=== PATIENT | male | born 1960 | race Two or more races ===

== ENCOUNTER 2025-01-13 22:31 | Inpatient (IN) | payer OTHER, MEDICAID ==
[~2025-01-13] VITALS: Ht 175.3 cm; Wt 58.5 kg
--- NOTE | 2025-01-13 22:55 | ED.PDOC ---
SOB-HPI HPI Comments 64 year old male brought in by EMS presents to the ED with a chief complaint of shortness of breath onset 1 week. Per EMS, upon their arrival O2 sat was low 70s on RA, given a breathing treatment and albuterol, O2 improved to 90s, BS 240, HR 123. Patient states he has been experiencing cough with phlegm as well as shortness of breath for the past week, has used albuterol inhaler with no relief. Patient has not seen PCP, denies any PMHx. Denies chest pain, headache, dizziness, nausea, vomiting, diarrhea, abdominal pain, dysuria. No other symptoms or modifying factors present at this time. Chief Complaint: Shortness of Breath Time Seen by MD: 22:42 Reviewed notes: Medications, Allergies Information Source: Patient, Emergency Med Personnel Mode of Arrival: EMS Severity: Moderate Timing: Weeks Duration: Since onset Context: At Rest PE Risk Factors: None History of: None Prehospital treatment: Breathing Tx, Oxygen, Other (albuterol) Modifying Factors: Nothing Associated Signs and Symptoms: Cough Radiation: No Radiation If cough with SOB: Productive Past Medical History PAST MEDICAL HISTORY: Denies Surgical History: Denies all surgeries Family History Family History: Unknown Social History Smoker: Cigarettes Alcohol: Denies ETOH Use Drugs: Denies Drug Use Lives In: Home Constitutional: denies: chills, diaphoresis, fatigue, fever, malaise, sweats, weakness, others EENTM: denies: blurred vision, double vision, ear bleeding, ear discharge, ear drainage, ear pain, ear ringing, eye pain, eye redness, hearing loss, mouth pain, mouth swelling, nasal discharge, nose bleeding, nose congestion, nose pain, photophobia, tearing, throat pain, throat swelling, voice changes, others Respiratory: reports: cough, shortness of breath; denies: hemoptysis, orthopnea, SOB at rest, SOB with excertion, stridor, wheezing, others Cardiovascular: denies: chest pain, dizzy spells, diaphoresis, Dyspnea on exertion, edema, irregular heart beat, left arm pain, lightheadedness, palp itations, PND, syncope, others Gastrointestinal: denies: abdomen distended, abdominal pain, blood streaked bowels, constipated, diarrhea, dysphagia, difficulty swallowing, hematemesis, melena, nausea, poor appetite, poor fluid intake, rectal bleeding, rectal pain, vomiting, others Genitourinary: denies: burning, dysuria, flank pain, frequency, hematuria, incontinence, penile discharge, penile sore, pain, testicle pain, testicle swelling, urgency, others Neurological: denies: dizziness, fainting, headache, left sided numbness, left sided weakness, numbness, paresthesia, pre-existing deficit, right sided numbness, right sided weakness, seizure, speech problems, tingling, tremors, weakness, others Musculoskeletal: denies: back pain, gout, joint pain, joint swelling, muscle pain, muscle stiffness, neck pain, others Integumetry: denies: bruises, change in color, change in hair/nails, dryness, laceration, lesions, lumps, rash, wounds, others Allergic/Immunocompromised: denies: Difficulty Healing, Frequent Infections, Hives, Itching, others Hematologic/Lymphatic: denies: anemia, blood clots, easy bleeding, easy brui sing, swollen glands, others Endocrine: denies: excessive hunger, excessive sweating, excessive thirst, ex cessive urination, flushing, intolerance to cold, intolerance to heat, unexplained weight gain, unexplained weight loss, others Psychiatric: denies: anxiety, bipolar disorder, depression, hopeless, panic disorder, schizophrenia, sleepless, suicidal, others All Other Systems: Reviewed and Negative Physical Exam General Appearance: No Apparent Distress, Normal HEENT: Normal ENT Inspection, Pharynx Normal, TMs Normal Neck: Full Range of Motion, Non-Tender, Normal, Normal Inspection Respiratory: Chest Non-Tender, Lungs Clear, No Accessory Muscle Use, No Respiratory Distress, Normal Breath Sounds Cardiovascular: No Edema, No JVD, No Murmur, No Gallop, Normal Peripheral Pulses, Regular Rate/Rhythm Breast Exam: Deferred Gastrointestinal: No Organomegaly, Non Tender, No Pulsatile Mass, Normal Bowel Sounds, Soft Genitalia: Deferred Pelvic: Deferred Rectal: Deferred Extremities: No calf tenderness, Normal capillary refill, Normal inspection, Normal range of motion, Non-tender, No pedal edema Musculoskeletal : Apperance: Normal Neurologic: Alert, peoplesoft analyst II-XII nml as Tested, No Motor Deficits, Normal Affect, Normal Mood, No Sensory Deficits Cerebellar Function: Normal Reflexes: Normal Skin: Dry, Normal Color, Warm Lymphatic: No Adenopathy Was a procedure done? Was a procedure done?: No Differential Dx Differential Diagnosis: CHF, COPD, Hypertension, Pneumonia X-Ray, Labs, Meds, VS Vital Signs Date Time Temp Pulse Resp B/P (MAP) Pulse Ox O2 Delivery O2 Flow Rate FiO2 01/13/25 22:59 22 93 Nasal Cannula* 6 44 01/13/25 22:40 98.6 123 22 130/73 (92) 96 01/13/25 22:32 118 Lab Test 01/13/25 22:58 Range/Units White Blood Count 16.1 H 4.4-10.8 10^3/uL Red Blood Count 4.20 L 4.5-5.90 10^6/uL Hemoglobin 13.1 L 13.5-17.5 g/dL Hematocrit 38.8 L 41.0-53.0 % Mean Corpuscular Volume 92.4 80.0-100.0 fL Mean Corpuscular Hemoglobin 31.3 28.0-32.0 pg Mean Corpuscular Hemoglobin Concent 33.8 32.0-36.0 g/dL Red Cell Distribution Width 14.4 H 11.8-14.3 % Platelet Count 227 140-450 10^3/uL Mean Platelet Volume 8.2 6.9-10.8 fL Neutrophils (%) (Auto) 92.6 H 37.0-80.0 % Lymphocytes (%) (Auto) 4.3 L 10.0-50.0 % Monocytes (%) (Auto) 2.8 0.0-12.0 % Eosinophils (%) (Auto) 0.0 0.0-7.0 % Basophils (%) (Auto) 0.3 0.0-2.0 % Neutrophils # (Auto) 14.9 H 1.6-8.6 10 ^3/uL Lymphocytes # (Auto) 0.7 0.4-5.4 10 ^3/uL Monocytes # (Auto) 0.4 0-1.3 10 ^3/uL Eosinophils # (Auto) 0 0-0.8 10 ^3/uL Basophils # (Auto) 0 0-0.2 10 ^3/uL Nucleated Red Blood Cells 0.0 % Sodium Level 137 136-145 mmol/L Potassium Level 4.6 3.5-5.1 mmol/L Chloride Level 106 98-107 mmol/L Carbon Dioxide Level 25 20-31 mmol/L Anion Gap 6 5-15 Blood Urea Nitrogen 29 H 9-23 mg/dL Creatinine 1.21 0.700-1.30 mg/dL Glomerular Filtration Rate Calc 66 >90 mL/min BUN/Creatinine Ratio 24.0 H 10.0-20.0 Serum Glucose 226 H 74-106 mg/dL Calcium Level 9.5 8.7-10.4 mg/dL B-Type Natriuretic Peptide 841.01 0-100 pg/mL Current Medications Medications (Trade) Dose Ordered Sig/Oscar Route Start Time Stop Time Status Last Admin Azithromycin (Zithromax Tablet) 500 mg ONCE ONCE PO 01/13/25 22:45 01/13/25 22:46 DC 01/14/25 00:09 Methylprednisolone Sodium Succinate (Solu Medrol) 62.5 mg ONCE ONCE IV 01/13/25 22:45 01/13/25 22:46 DC 01/14/25 00:09 Albuterol (Ventolin Medneb) 5 mg ONCE ONCE NEB 01/13/25 22:45 01/13/25 22:46 DC 01/13/25 22:59 Ipratropium [place] (Atrovent Medneb) 0.5 mg ONCE ONCE NEB 01/13/25 22:45 01/13/25 22:46 DC 01/13/25 22:58 Time of 1ST Reevaluation: 23:12 Reevaluation 1ST: Unchanged Patient Education/Counseling: Diagnosis, Treatment, Prognosis Family Education/Counseling: No Family Present Additional Information The following tests were ordered, and results were reviewed by me: EKG, BMP, CBC, BNP, XY CHEST Additional Information was gathered from interviewing the following independent historians: EMS I reviewed and agreed with the following test results read by other providers: XY CHEST I discussed treatment and results with medical personnel and: patient Departure 1 Departure Time of Disposition: 00:18 (Patient presented with acute shortness of breath concerning for acute on chronic COPD Exacerbation, Pneumonia, ACS, CHF, Pneumothorax. Less likely PE, Dissection. Data: 1. I ordered and reviewed the result of at least 3 labs including a CBC, BMP, and Troponin. 2. I independently interpreted the following tests: Chest X-ray shows .Risk:This patient has a high risk of morbidity due to further diagnostic testing or treatment and may suffer from respiratory or cardiac etiology . Workup reveals a likely COPD Exacerbation and patient should be admitted for further workup. and possible expert consultation.) Impression: Primary Impression: Acute and chronic respiratory failure Additional Impression: Shortness of breath Disposition: ADMITTED INPATIENT Admit to: Med Surg Condition: Serious Critical Care Note Critical Care Time?: Yes Critical care comment: Shortness of breath Authorized and Performed by: Noemi Winchester MD Total critical care time: Approximately 38 minutes Due to a high probability of clinically significant, life threatening deterioration, the patient required my highest level of preparedness to intervene emergently and I personally spent this critical care time directly and personally managing the patient. This critical care time included obtaining a history; examining the patient; pulse oximetry; ordering and review of studies; arranging urgent treatment with development of a management plan; evaluation of patient's response to treatment; frequent reassessment; and, discussions with other providers. This critical care time was performed to assess and manage the high probability of imminent, life-threatening deterioration that could result in multi-organ failure. It was exclusive of separately billable procedures and treating other patients and teaching time. Please see my other sections and the rest of the note for further information on patient assessment and treatment. Stability Stability form required: No Heart Score Heart Score: Heart Score Response (Comments) Value History Slightly Suspicious 0 EKG Repolarization Disturb 1 Age >65 2 Risk Factors >3 or Hx ASHD 2 Troponin Normal limit 0 Total 5 I personally scribed for NOEMI WINCHESTER MD ([email or web address]) on 01/13/25 at 22:55. Electronically submitted by Blanka Post ([email or web address]). I personally scribed for NOEMI WINCHESTER MD ([email or web address]) on 01/13/25 at 22:56. Electronically submitted by Blanka Post ([email or web address]). NOEMI WINCHESTER MD Jan 13, 2025 22:55
[2025-01-13] MEDS: IPRATROPIUM BROM 0.5 MG/2.5ML INH SOL NEB ONE (22:58)
[2025-01-13] MEDS: ALBUTEROL SULF 2.5 MG/0.5ML(0.5%) NEB SOLN NEB ONE (22:59)
[2025-01-13 23:20] LABS: Chloride 106 mmol/L (98-107); Potassium 4.6 mmol/L (3.5-5.1); Sodium 137 mmol/L (136-145)
[2025-01-13 23:21] LABS: Anion Gap 6 (5-15); Basophils # (auto) 0 10 ^3/uL (0-0.2); Basophils % (auto) 0.3 % (0.0-2.0); Calcium 9.5 mg/dL (8.7-10.4); Carbon Dioxide 25 mmol/L (20-31); Eosinophils # (auto) 0 10 ^3/uL (0-0.8); Hematocrit 38.8 % (41.0-53.0); Hemoglobin 13.1 g/dL (13.5-17.5); Lymphocytes # (auto) 0.7 10 ^3/uL (0.4-5.4); Lymphocytes % (auto) 4.3 % (10.0-50.0); Mean Corpuscular Hemoglobin 31.3 pg (28.0-32.0); Mean Corpuscular Hgb Conc. 33.8 g/dL (32.0-36.0); Mean Corpuscular Volume 92.4 fL (80.0-100.0); Monocytes # (auto) 0.4 10 ^3/uL (0-1.3); Monocytes % (auto) 2.8 % (0.0-12.0); Neutrophils # (auto) 14.9 10 ^3/uL (1.6-8.6); Neutrophils % (auto) 92.6 % (37.0-80.0); Platelet Count (auto) 227 10^3/uL (140-450); Red Cell Distribution Width 14.4 % (11.8-14.3); White Blood Cell 16.1 10^3/uL (4.4-10.8)
[2025-01-13 23:26] LABS: Blood Urea Nitrogen 29 mg/dL (9-23); Glucose 226 mg/dL (74-106)
[2025-01-14] VITALS (18 sets, daily range): BP systolic 90–130; BP diastolic 55–73; PULSE 67–91; RESP 13–22; TEMP 97.5–98.4; O2SAT 83–99
[2025-01-14] MEDS: AZITHROMYCIN 250 MG TAB PO ONE (00:09)
[2025-01-14] MEDS: methylPREDNISolone SOD SUCC 125 MG/2 ML VL IV ONE (00:09)
--- NOTE | 2025-01-14 00:10 | DVH ---
CHEST RADIOGRAPH Indication: sob Technique: Single frontal view of the chest was obtained Comparison: None Findings/ IMPRESSION: Right mid to lower lung zone opacification concerning for pneumonia. Prominent interstitial markings diffusely. No pneumothorax or pleural effusions
[2025-01-14] MEDS ORDERED: ONDANSETRON HCL 4 MG/2 ML VIAL IV PRN (01:15)
[2025-01-14] MEDS ORDERED: DEXTROSE (50%) 50ML SYRG IV PRN (01:15)
[2025-01-14] MEDS ORDERED: MORPHINE SULFATE INJ 2 MG/ml SYRG IV PRN ×2 (01:15→15:45)
[2025-01-14] MEDS ORDERED: NITROGLYCERIN 0.4 MG SL TAB SL PRN ×2 (01:15→15:45)
[2025-01-14] MEDS: FUROSEMIDE 20 MG/2 ML VIAL IV ONE (02:21)
[2025-01-14] MEDS: IPRATROPIUM BROM 0.5 MG/2.5ML INH SOL NEB PRN (02:33)
[2025-01-14] MEDS: ALBUTEROL SULF 2.5 MG/0.5ML(0.5%) NEB SOLN NEB PRN (02:34)
--- NOTE | 2025-01-14 03:50 | DVHHP2 ---
History of Present Illness Reason for Visit: Shortness for breath History of Present Illness 64-year-old male presents for evaluation of shortness for breath. Patient presents with a one-week history of worsening shortness for breath with mild exertion. Patient reports becoming severely winded with doing minimal tasks at home. Denies chest pain or palpitations. States having a nonproductive cough. No fever or chills. No other acute complaints reported. Past Medical History COPD, dyslipidemia and diabetes mellitus Past Surgical History Denies Family History Noncontributory Smoke: No ALCOHOL: none Drugs: None Lives: with Family Review of Systems Review of Systems Review of systems are currently negative otherwise addressed in HPI. Allergies: Coded Allergies: NO KNOWN ALLERGIES (Unverified , 01/13/25) Medications Current Medications Medications Dose Ordered Sig/Oscar Route Start Time Stop Time Status Last Admin Dose Admin Atorvastatin Calcium 40 mg HS PO 01/14/25 22:00 Albuterol 2.5 mg Q6HPRN PRN NEB 01/14/25 01:15 01/14/25 02:34 2.5 MG Ipratropium [place] 0.5 mg Q6HPRN PRN NEB 01/14/25 01:15 01/14/25 02:33 0.5 MG Ceftriaxone Sodium 50 ml @ 100 mls/hr DAILY@09 IV 01/14/25 09:00 Azithromycin 250 ml @ 125 mls/hr DAILY@0000 IV 01/15/25 00:00 Diagnostic Test (Pha) 1 strip ACHS 01/14/25 07:00 Insulin Human Regular ACHS SC 01/14/25 07:00 Dextrose 50 ml UD PRN IV 01/14/25 01:15 Ondansetron HCl 4 mg Q4HP PRN IV 01/14/25 01:15 Enoxaparin Sodium 40 mg DAILY SC 01/14/25 10:00 Acetaminophen 650 mg Q6HP PRN PO 01/14/25 01:15 Nitroglycerin 0.4 mg Q5MINP PRN SL 01/14/25 01:15 Morphine Sulfate 2 mg Q30M PRN IV 01/14/25 01:15 Furosemide 40 mg DAILY PO 01/14/25 10:00 Exam Vital Signs Vital Signs Date Time Temp Pulse Resp B/P (MAP) Pulse Ox O2 Delivery O2 Flow Rate FiO2 01/14/25 02:34 98 Nasal Cannula 3.0 01/14/25 02:34 77 14 01/14/25 02:34 N/A 01/14/25 02:21 100/61 01/14/25 00:05 98.1 98.1 Exam Gen: 64-year-old male in mild distress Skin: Warm, dry, normal color and texture, no rash. HEENT: Normocephalic atraumatic, mucous membranes moist and pink. Neck: Cervical and supraclavicular nodes normal without enlargement, trachea is midline, thyroid gland is normal without masses. Pulmonary: Diminished breath sounds bilaterally Cardiac: Regular rate and rhythm. No murmur Abdomen: Soft, nontender, nondistended, bowel sounds present all 4 quadrants, no guarding, no rigidity, no organomegaly. Extremities: No cyanosis, clubbing, no edema Neuro: Cranial nerves II through XII grossly intact, normal affect and speech, no focal motor deficits. Labs/Xrays ORDERING PHYSICIAN: NOEMI FORBES MD PROCEDURE(s): CXRP - CHEST PORTABLE REASON: sob ORDER NUMBER(s): [id number], ACCESSION NUMBER(s): [id number] CHEST RADIOGRAPH Indication: sob Technique: Single frontal view of the chest was obtained Comparison: None Findings/ IMPRESSION: Right mid to lower lung zone opacification concerning for pneumonia. Prominent interstitial markings diffusely. No pneumothorax or pleural effusions Labs Test 01/14/25 01:33 01/13/25 22:58 Range/Units Troponin I High Sensitivity 570 *H </=54 ng/L White Blood Count 16.1 H 4.4-10.8 10^3/uL Red Blood Count 4.20 L 4.5-5.90 10^6/uL Hemoglobin 13.1 L 13.5-17.5 g/dL Hematocrit 38.8 L 41.0-53.0 % Mean Corpuscular Volume 92.4 80.0-100.0 fL Mean Corpuscular Hemoglobin 31.3 28.0-32.0 pg Mean Corpuscular Hemoglobin Concent 33.8 32.0-36.0 g/dL Red Cell Distribution Width 14.4 H 11.8-14.3 % Platelet Count 227 140-450 10^3/uL Mean Platelet Volume 8.2 6.9-10.8 fL Neutrophils (%) (Auto) 92.6 H 37.0-80.0 % Lymphocytes (%) (Auto) 4.3 L 10.0-50.0 % Monocytes (%) (Auto) 2.8 0.0-12.0 % Eosinophils (%) (Auto) 0.0 0.0-7.0 % Basophils (%) (Auto) 0.3 0.0-2.0 % Neutrophils # (Auto) 14.9 H 1.6-8.6 10 ^3/uL Lymphocytes # (Auto) 0.7 0.4-5.4 10 ^3/uL Monocytes # (Auto) 0.4 0-1.3 10 ^3/uL Eosinophils # (Auto) 0 0-0.8 10 ^3/uL Basophils # (Auto) 0 0-0.2 10 ^3/uL Nucleated Red Blood Cells 0.0 % D-Dimer, Quantitative 0.54 H 0.0-0.49 mg/L FEU Sodium Level 137 136-145 mmol/L Potassium Level 4.6 3.5-5.1 mmol/L Chloride Level 106 98-107 mmol/L Carbon Dioxide Level 25 20-31 mmol/L Anion Gap 6 5-15 Blood Urea Nitrogen 29 H 9-23 mg/dL Creatinine 1.21 0.700-1.30 mg/dL Glomerular Filtration Rate Calc 66 >90 mL/min BUN/Creatinine Ratio 24.0 H 10.0-20.0 Serum Glucose 226 H 74-106 mg/dL Lactic Acid Level 2.0 0.4-2.0 mmol/L Calcium Level 9.5 8.7-10.4 mg/dL B-Type Natriuretic Peptide 841.01 0-100 pg/mL Assessment/Plan Assessment/Plan Assessment Community-acquired pneumonia Congestive heart failure Diabetes mellitus COPD Plan Admit the patient to telemetry to the hospitalist Rocephin/azithromycin Resume home medications Med nebs Echocardiogram pending Continue treatment per orders. Plan discussed with: Patient My Orders Orders - MIKEL ROSE Procedure Category Date Status Time Echo 2d Mode Cardiac US 01/14/25 Logged DOP 01:15 Atorvastatin (Lipitor) PHA 01/14/25 In Process 22:00 Consistent DIET 01/14/25 Transmitted Carb(Ccho)Diabetes Breakfast Albuterol Medneb PHA 01/14/25 In Process (Ventolin Medneb) 01:15 Basic Metabolic Panel LAB 01/15/25 Verified 04:00 Glucose Blood PHA 01/14/25 In Process (Accu-Chek Comfort 07:00 Insulin R (Human) PHA 01/14/25 In Process (Insulin R) 07:00 Dextrose 50% Syringe PHA 01/14/25 In Process 01:15 Admit ADMIT 01/14/25 Transmitted 01:15 Ondansetron Hcl PHA 01/14/25 In Process (Zofran) 01:15 Enoxaparin Sodium PHA 01/14/25 In Process (Lovenox) 10:00 Complete Blood Count LAB 01/15/25 Verified 04:00 Cardiac DIET 01/14/25 Transmitted Diet-2gna,Lofat,Lochol Breakfast Condition: Fair BRIANA 01/14/25 In Process 01:15 Acetaminophen Tablet PHA 01/14/25 In Process (Tylenol Tablet) 01:[address] [facility] 01/14/25 In Process Privileg 01:15 Nitroglycerin [facility] 01/14/25 In Process Sublingual (Ntrostat 01:15 Morphine Sulfate PHA 01/14/25 In Process Injection 01:[address] Chest [facility] 01/14/25 In Process Pain 01:15 Notify Md Of Changes [facility] 01/14/25 In Process From Base 01:[address] [facility] 01/14/25 In Process 24 Hours 01:[address] [facility] 01/14/25 In Process Protocol 01:[address] [facility] 01/14/25 In Process Every Shift 01:15 Oxygen By Nasal RT 01/14/25 Transmitted Cannula 01:15 Ipratropium Medneb PHA 01/14/25 In Process (Atrovent Medneb) 01:15 Ceftriaxone 1gm/50ml PHA 01/14/25 In Process D5w (Rocephin) 09:00 Azithromycin 500mg/ PHA 01/15/25 In Process 250ml (Zithromax 50 00:00 Furosemide Tablet PHA 01/14/25 In Process (Lasix Tablet) 10:00 Troponin-I Hs LAB 01/14/25 Logged 04:00 Troponin-I Hs LAB 01/14/25 Logged 07:00 Date of Service: Jan 14, 2025 Billing Provider: MIKEL ROSE Common Visit Codes: [id number] INP/OBS CARE (HIGH) MIKEL ROSE Jan 14, 2025 03:50
[2025-01-14 05:07] LABS: Urine Bacteria None Seen /hpf (None Seen)
[2025-01-14 05:25] LABS: Urine Blood Negative /uL (Negative); Urine Clarity Clear (Clear); Urine Color Light-Yellow (Yellow); Urine Protein, UAD Negative (Negative); Urine Specific Gravity 1.016 (1.001-1.035); Urine Squamous Epithelial Cell None Seen /hpf (<5); Urine Urobilinogen Normal (Negative); Urine WBC < 1 /HPF (0-3)
--- NOTE | 2025-01-14 06:30 | ECG ---
[facility] Test Date: 2025-01-13 Test Time: 22:32:48 Pat Name: JUANI GONZALES Department: er Room: 0250T Gender: M Die Developer: er : 1960 Requested By: NOEMI FORBES Order Number: [id number] Reading MD: Jos Kathleen Measurements Intervals [place] Rate: 118 P: 95 CT: 146 QRS: 84 QRSD: 79 T: 252 QT: 281 QTc: 394 Interpretive Statements Sinus tachycardia Right atrial enlargement Borderline right axis deviation LVH with secondary repolarization abnormality ST depr, consider ischemia, inferior leads Electronically Signed On 01-14-2025 22:26:09 PST by Jos Kathleen Please click the below link to view image of tracing.
[2025-01-14] MEDS: ACCU-CHEK COMFORT CURVE STRIP VI SCH (07:00)
[2025-01-14] MEDS: InsuLIN REG 1unit/0.01ml Soln (100units/ml) SC SCH (07:00)
[2025-01-14 07:41] LABS: INR 1.08 (0.9-1.15); Partial Thromboplastin Time 23.9 SEC (24.5-34.5); Prothrombin Time 11.4 sec (9.3-11.8)
[2025-01-14 07:47] LABS: Basophils # (auto) 0 10 ^3/uL (0-0.2); Basophils % (auto) 0.1 % (0.0-2.0); Eosinophils # (auto) 0 10 ^3/uL (0-0.8); Hematocrit 38.9 % (41.0-53.0); Hemoglobin 12.7 g/dL (13.5-17.5); Lymphocytes # (auto) 0.5 10 ^3/uL (0.4-5.4); Mean Corpuscular Hemoglobin 30.5 pg (28.0-32.0); Mean Corpuscular Hgb Conc. 32.7 g/dL (32.0-36.0); Mean Corpuscular Volume 93.2 fL (80.0-100.0); Monocytes # (auto) 0.3 10 ^3/uL (0-1.3); Neutrophils # (auto) 15.3 10 ^3/uL (1.6-8.6); Neutrophils % (auto) 94.9 % (37.0-80.0); Platelet Count (auto) 196 10^3/uL (140-450); Red Blood Cells 4.17 10^6/uL (4.5-5.90); Red Cell Distribution Width 14.5 % (11.8-14.3); White Blood Cell 16.2 10^3/uL (4.4-10.8)
[2025-01-14] MEDS: HEPARIN SODIUM (PORCINE) 5000 UNITS/ML 1ML VIAL IV ONE (08:27)
[2025-01-14 08:39] LABS: Magnesium 1.8 mg/dL (1.6-2.6)
[2025-01-14] MEDS: cefTRIAXone 1GM/50ML D5W 50 ML IV SCH (08:41)
[2025-01-14] MEDS: HEPARIN DRIP/D5W 100UNITS/ML 250 ML IV SCH (09:09)
--- NOTE | 2025-01-14 09:17 | DVHINCON2 ---
Date Seen: Jan 14, 2025 Referring Physician KEN Mock Reason for Consultation NSTEMI History of Present Illness This is a 64-year-old male patient who presents to the emergency room with chief complaint of shortness of breath for three weeks. The patient reports that his dyspnea has become progressively worse and yesterday he became concerned after experiencing severe dyspnea on exertion as well as orthopnea. He comes to the emergency room for further evaluation. Cardiology has now been consulted at this time for elevated troponin level. Initial twelve lead electrocardiogram reveals sinus tachycardia with ST segment depression to inferolateral leads and left ventricular hypertrophy. Initial troponin level of 327ng/L with significant up-trend and current peak level at 1491ng/L (pending another level). The patient denies any chest pain at time of assessment or prior to admission. Significant past medical history includes dyslipidemia, COPD, type 2 diabetes mellitus, chronic back pain, and tobacco use. The patient denies seeing a rn chemical dependency in the outpatient setting. Past Medical History Past medical history reviewed. No other significant than mentioned above. Past Surgical History Spinal decompression surgery Left knee arthroscopy Family History Family history reviewed. Social History Patient has a 40 pack-year history Denies any illicit drug use Denies any alcohol use Allergies: Coded Allergies: NO KNOWN ALLERGIES (Unverified , 01/13/25) Home Meds Home medications reviewed. Current Medications Current Medications Medications (Trade) Dose Ordered Sig/Oscar Route PRN Reason Start Time Stop Time Status Last Admin Atorvastatin Calcium (Lipitor) 40 mg HS PO 01/14/25 22:00 Albuterol (Ventolin Medneb) 2.5 mg Q6HPRN PRN NEB SHORTNESS OF BREATH 01/14/25 01:15 01/14/25 02:34 Ipratropium [place] (Atrovent Medneb) 0.5 mg Q6HPRN PRN NEB SHORTNESS OF BREATH 01/14/25 01:15 01/14/25 02:33 Ceftriaxone Sodium 50 ml @ 100 mls/hr DAILY@09 IV 01/14/25 09:00 01/14/25 08:41 Azithromycin 250 ml @ 125 mls/hr DAILY@0000 IV 01/15/25 00:00 Diagnostic Test (Pha) (Accu-Chek Comfort Curve T) 1 strip ACHS 01/14/25 07:00 01/14/25 07:00 Insulin Human Regular (InsuLIN R) ACHS SC 01/14/25 07:00 Dextrose 50 ml UD PRN IV Blood Sugar LESS THAN 60 01/14/25 01:15 Ondansetron HCl (Zofran) 4 mg Q4HP PRN IV NAUSEA / VOMITING 01/14/25 01:15 Enoxaparin Sodium (Lovenox) 40 mg DAILY SC 01/14/25 10:00 01/14/25 08:02 DC Acetaminophen (Tylenol Tablet) 650 mg Q6HP PRN PO PAIN SCALE 1-3 OR TEMP>100.4 01/14/25 01:15 Nitroglycerin (Ntrostat Sublingual) 0.4 mg Q5MINP PRN SL FOR CHEST PAIN 01/14/25 01:15 Morphine Sulfate 2 mg Q30M PRN IV FOR CHEST PAIN 01/14/25 01:15 Furosemide (Lasix Tablet) 40 mg DAILY PO 01/14/25 10:00 Heparin Sodium/ Dextrose 250 ml @ 7.632 mls/ hr Q24H IV 01/14/25 05:00 UNV Review of Systems Constitutional: No symptom reported Ears, Nose, & Throat: No symptom reported Eyes: No symptom reported Neurological: No symptoms reported Pulmonary/Respiratory: Shortness of breath Cardiovascular: No symptom reported Gastrointestinal: No symptom reported Genitourinary: No symptom reported Musculoskeletal: No symptom reported Skin: No symptom reported Psychiatric: No symptom reported Endocrine: No symptom reported Hematologic/Lymphatic: No symptom reported Vital Signs Vital Signs Date Time Temp Pulse Resp B/P (MAP) Pulse Ox O2 Delivery O2 Flow Rate FiO2 01/14/25 08:10 64 01/14/25 06:05 20 91/57 (68) 94 01/14/25 02:34 Nasal Cannula 3.0 01/14/25 02:34 N/A 01/14/25 00:05 98.1 98.1 Physical Exam General Appearance: Cooperative. Well-developed. Well-nourished. No acute distress. Pulmonary/Respiratory: Diminished bilateral lower lobes Cardiovascular/Chest: Regular rate and rhythm. Systolic murmur Peripheral Pulses: 2+ Radial (R). 2+ Radial (L). 2+ Pedal (R). 2+ Pedal (L) Abdominal Exam: Normal bowel sounds. Ankle Exam: Negative ankle edema Lower extremities: Negative lower extremity edema Neuro/Mental Status: A/OX4, coherent. Thoughts/Psych: Normal thought pattern. Appropriate mood and affect. Good judgment and insight. Appearance: No acute distress. Skin Exam: Normal inspection. Normal color. Warm and dry. Labs/Diagnostic Data Labs Test 01/14/25 07:02 01/14/25 03:19 01/13/25 22:58 Range/Units White Blood Count 16.2 H 4.4-10.8 10^3/uL Red Blood Count 4.17 L 4.5-5.90 10^6/uL Hemoglobin 12.7 L 13.5-17.5 g/dL Hematocrit 38.9 L 41.0-53.0 % Mean Corpuscular Volume 93.2 80.0-100.0 fL Mean Corpuscular Hemoglobin 30.5 28.0-32.0 pg Mean Corpuscular Hemoglobin Concent 32.7 32.0-36.0 g/dL Red Cell Distribution Width 14.5 H 11.8-14.3 % Platelet Count 196 140-450 10^3/uL Mean Platelet Volume 8.6 6.9-10.8 fL Neutrophils (%) (Auto) 94.9 H 37.0-80.0 % Lymphocytes (%) (Auto) 3.0 L 10.0-50.0 % Monocytes (%) (Auto) 2.0 0.0-12.0 % Eosinophils (%) (Auto) 0.0 0.0-7.0 % Basophils (%) (Auto) 0.1 0.0-2.0 % Neutrophils # (Auto) 15.3 H 1.6-8.6 10 ^3/uL Lymphocytes # (Auto) 0.5 0.4-5.4 10 ^3/uL Monocytes # (Auto) 0.3 0-1.3 10 ^3/uL Eosinophils # (Auto) 0 0-0.8 10 ^3/uL Basophils # (Auto) 0 0-0.2 10 ^3/uL Nucleated Red Blood Cells 0.0 % Prothrombin Time 11.4 9.3-11.8 sec Prothrombin Time INR 1.08 0.9-1.15 Activated Partial Thromboplast Time 23.9 L 24.5-34.5 SEC Magnesium Level 1.8 1.6-2.6 mg/dL Troponin I High Sensitivity 1491 *H </=54 ng/L Triglycerides Level 58 < 150 mg/dL Cholesterol Level 207 H < 200 mg/dL LDL Cholesterol 131 H < 100 mg/dL HDL Cholesterol 66 H 40-59 mg/dL Urine Color Light-yellow Yellow Urine Clarity Clear Clear Urine pH 5.0 5.0-9.0 Urine Specific [place] 1.016 1.001-1.035 Urine Protein Negative Negative Urine Ketones Negative Negative Urine Blood Negative Negative /uL Urine Nitrite Negative Negative Urine Bilirubin Negative Negative Urine Urobilinogen Normal Negative mg/dL Urine Leukocyte Esterase Negative Negative /uL Urine RBC 1 0 - 3 /hpf Urine Microscopic WBC < 1 0-3 /HPF Urine Squamous Epithelial Cells None seen <5 /hpf Urine Bacteria None seen None Seen /hpf Urine Glucose Normal Normal mg/dL D-Dimer, Quantitative 0.54 H 0.0-0.49 mg/L FEU Sodium Level 137 136-145 mmol/L Potassium Level 4.6 3.5-5.1 mmol/L Chloride Level 106 98-107 mmol/L Carbon Dioxide Level 25 20-31 mmol/L Anion Gap 6 5-15 Blood Urea Nitrogen 29 H 9-23 mg/dL Creatinine 1.21 0.700-1.30 mg/dL Glomerular Filtration Rate Calc 66 >90 mL/min BUN/Creatinine Ratio 24.0 H 10.0-20.0 Serum Glucose 226 H 74-106 mg/dL Lactic Acid Level 2.0 0.4-2.0 mmol/L Calcium Level 9.5 8.7-10.4 mg/dL B-Type Natriuretic Peptide 841.01 0-100 pg/mL Assessment NSTEMI, rule out type 1 Critical aortic stenosis Dyslipidemia Pneumonia COPD Type 2 diabetes mellitus Tobacco use Plan/Recommendation We will continue with the following plan/recommendations (Dr. Luis): * Echocardiogram reveals EF 50% with critical aortic stenosis (ZAKIA 0.79 cm2, mean gradient 71mmHg, peak gradient 103mmHg) * Heparin gtt per pharmacy protocol * Lipid-lowering agent * Cardiac surveillance * Coronary angiogram * patient financial services manager: tx to [facility] for possible TAVR Patient seen and examined in the emergency room with . Given the patient's clinical presentation, elevated troponin level, and comorbidities, the patient may benefit from coronary angiogram with left heart catheterization. The procedure was discussed with the patient in full detail including risks and benefits. Risks include but are not limited to bleeding, contrast-induced nephropathy, stroke, and even . The patient understands and is agreeable to undergo the procedure. We will schedule the patient at soonest availability on 01/14/25. Thank you for allowing us to care for this patient. Please call with any questions or concerns. Critical care time spent: 40 minutes This medical document was created using an electronic medical record system with voice recognition software and computerized dictation system. Although this document has been carefully reviewed, there might still be some phonetic and typographical errors. Occasional wrong-word or ``sound-alike substitutions may have occurred due to the inherent limitations of voice recognition software. These areas are purely typographical due to imperfections of the software programs and do not reflect any compromise in the patient's medical care. Please read the chart carefully and recognize, using context, where these substitutions have occurred. Plan discussed with: Patient NYHA Physical activity limitations: NA Date of Service: Jan 14, 2025 Billing Provider: DAE BLANCAS Cardiology Common Codes: [id number] INP/OBS CARE (High) Cardiology Consultation Codes: [id number] CONSULT <45MIN DAE BLANCAS Jan 14, 2025 09:17
[2025-01-14] MEDS ORDERED: ENOXAPARIN SOD 40 MG/0.4 ML SYRINGE SC SCH (10:00)
[2025-01-14] MEDS: FUROSEMIDE 40 MG TAB PO SCH (10:00)
[2025-01-14 11:28] LABS: Free T3 2.47 pg/mL (2.3-4.2)
[2025-01-14 11:30] LABS: Free T4 (Free Thyroxine) 1.38 ng/dL (0.89-1.76)
[2025-01-14 11:32] LABS: Rapid Influenza A Negative (Negative); Rapid Influenza B Negative (Negative)
[2025-01-14 11:32] LABS: COVID19 ANTIGEN SOFIA FIA NEGATIVE (NEGATIVE)
--- NOTE | 2025-01-14 11:51 | DVHSR ---
APPROVED REPORT EXAM: Two-dimensional and M-mode echocardiogram with Doppler and color Doppler. Blood Pressure: 91/57 mmHg INDICATION EF RISK FACTORS Height: 69, Weight: 140 DIMENSIONS LVDd (3.8-5.7cm)LA (2D)4.0 (1.9-4.0cm)Aortic Root (2.0-3.7cm) EF (%) 48.0 (55-70%)Rt. Atrium3.9 (1.9-4.0cm)Asc. Aorta cm Mitral Valve MitralMitral Stenosis E wave1.03m/sMV Mean GR.mmHg A wave1.23m/sMV Peak GR.102mmHg E/A ratio0.82D MVAcm2 DECEL [id number] 1/2 Timems Aortic Valve Aortic ValveAortic Stenosis V11.41m/Emiliano Mean GR.71mmHg V25.07m/Emiliano Peak GR.103mmHg LVOT Diameter1.9 (1.8-2.4cm)Doppler AVA0.79cm2 AI P 1/2 Qiad571.20ms Other Information Technically limited study due to body habitus and patient breathing. Conclusion lvef 50% by visual estimate RV function normal critical aortic stenosis, AV mean gradient > 67 mmhg, AV V max of 5.1 m/s moderate to severe aotric regurg
[2025-01-14] MEDS: ANGIOMAX 250 MG VIAL IV ONE (14:19)
[2025-01-14] MEDS: VERAPAMIL 2.5MG/ML INJ 2ML VIAL IV ONE (14:19)
[2025-01-14] MEDS: HEPARIN SODIUM (PORCINE) 5000 UNITS/ML 1ML VIAL ONE (14:19)
[2025-01-14] MEDS: fentaNYL CITRATE 100 MCG/2 ML VL ONE (14:19)
[2025-01-14] MEDS: IODIXANOL 320MG/ML 100ML BTL IV ONE (14:20)
[2025-01-14] MEDS: LIDOCAINE 2%HCL (LOCAL ANESTH.) INJ 20ML MDV ONE ×2 (14:20→14:21)
[2025-01-14] MEDS: MIDAZOLAM HCL 2MG/2ML 2ml VIAL (1mg/ml) ONE (14:20)
[2025-01-14] MEDS: SODIUM CHL 0.9% 0 ML ONE (14:20)
[2025-01-14] MEDS: NOREPINEPHRINE 8 MG/250ML KIT 0 ML IV ONE (15:16)
--- NOTE | 2025-01-14 16:01 | DVHOP2 ---
Operative Report Operative Report CARDIAC DIRECTOR PROCEDURE REPORT [place], [place] Date of Service: 01/14/25 Bartender Server: Ijeoma Schneider MD PROCEDURES PERFORMED: Coronary angiogram, conscious sedation administration and supervision, less than 15 minutes; fluoroscopy use and interpretation. PREOPERATIVE DIAGNOSES: severe POSTOP DIAGNOSIS: severe DESCRIPTION OF PROCEDURE: The patient or appropriate family signed informed consent understanding the risks, benefits and alternatives of the procedure, they wished to proceed. The patient was brought to the cardiac laboratory geneticist in n.p.o. state. The patient was prepped in a sterile fashion. Sedation was used per cardiac cath protocol. I administered 2 mL of 2% lidocaine to the right wrist. With an antegrade front wall puncture. I cannulated the right radial artery and placed a 5 Polish Glidesheath slender. Next, Next, a - 5 Polish [place] catheter carroll JR 4 were used for coronary angiogram . At the completion of procedure, all guides and wires were removed, and there were no immediate complications. 2000 U of IV heparin given .pt was on heparin gtt . no spasmolytic was given for critical FINDINGS: RCA: Moderate vessel off the right sinus of Valsalva, there is a focal 60-70% stenosis in mid portion. it is dominant vessel with PDA off distally LEFT MAIN: Moderate size left main, it bifurcates into LAD and circumflex. very downward takeoff. no severe stenosis. CIRCUMFLEX: Moderate caliber vessel coming off the left main with no flow limiting stenosis. OM1 is very early takeoff with 40% mid vessel stenosis . distal CX has mild Plaque LAD: LAD is a moderate caliber vessel coming of the left main. no severe stenosis. 30% mid LAD stenosis with several small diag branches coming off. Incidentally, J wire crossed AV twice with ease . pressures not obtained how ever given confirmed critical . IJEOMA SCHNEIDER MD Jan 14, 2025 16:01
[2025-01-14] MEDS ORDERED: FOLI-119 (17:51)
[2025-01-14] MEDS ORDERED: DIPH25CA51 (17:51)
[2025-01-14] MEDS ORDERED: METH2.5T62 (17:51)
[2025-01-14] MEDS ORDERED: ALBU108A5 (17:51)
[2025-01-14] MEDS ORDERED: ADAL40IN2 (17:51)
[2025-01-14] MEDS: ATORVASTATIN 20 MG TAB PO SCH (22:49)
[2025-01-15] VITALS (10 sets, daily range): BP systolic 87–123; BP diastolic 60–80; PULSE 86–97; RESP 16–17; TEMP 97.4–98.4; O2SAT 92–98
[2025-01-15] MEDS: AZITHROMYCIN 500MG/ 250ML 250 ML IV SCH
[2025-01-15 07:06] LABS: Basophils # (auto) 0.1 10 ^3/uL (0-0.2); Basophils % (auto) 0.3 % (0.0-2.0); Eosinophils # (auto) 0.1 10 ^3/uL (0-0.8); Eosinophils % (auto) 0.3 % (0.0-7.0); Hematocrit 37.2 % (41.0-53.0); Hemoglobin 12.3 g/dL (13.5-17.5); Lymphocytes # (auto) 2.1 10 ^3/uL (0.4-5.4); Lymphocytes % (auto) 11.8 % (10.0-50.0); Mean Corpuscular Hemoglobin 30.8 pg (28.0-32.0); Mean Corpuscular Hgb Conc. 33.2 g/dL (32.0-36.0); Mean Corpuscular Volume 92.6 fL (80.0-100.0); Monocytes # (auto) 1.4 10 ^3/uL (0-1.3); Monocytes % (auto) 7.8 % (0.0-12.0); Neutrophils # (auto) 14.2 10 ^3/uL (1.6-8.6); Neutrophils % (auto) 79.8 % (37.0-80.0); Platelet Count (auto) 188 10^3/uL (140-450); Red Blood Cells 4.01 10^6/uL (4.5-5.90); Red Cell Distribution Width 14.7 % (11.8-14.3); White Blood Cell 17.8 10^3/uL (4.4-10.8)
[2025-01-15 07:18] LABS: Potassium 4.5 mmol/L (3.5-5.1); Sodium 140 mmol/L (136-145)
[2025-01-15 07:19] LABS: Anion Gap 4 (5-15); Calcium 9.4 mg/dL (8.7-10.4); Carbon Dioxide 28 mmol/L (20-31); Chloride 108 mmol/L (98-107)
[2025-01-15 07:24] LABS: Glucose 97 mg/dL (74-106)
[2025-01-15 07:28] LABS: Blood Urea Nitrogen 31 mg/dL (9-23)
--- NOTE | 2025-01-15 13:37 | DVHPN2 ---
Reviewed: Care Plan, H&P, Labs, Medications, Previous Orders, Radiology Changes from previous H/P or p: No Changes General: Per HPI Objective Vitals Vital Signs Date Time Temp Pulse Resp B/P (MAP) Pulse Ox O2 Delivery O2 Flow Rate FiO2 01/15/25 12:35 97.4 92 17 116/80 (92) 98 97.4 01/15/25 10:00 Room Air 0.0 01/15/25 10:00 21 Intake/Output Intake and Output 01/15/25 07:00 Intake Total 535 ml Output Total 400 ml Balance 135 ml Intake Oral 200 ml IV Total 335 ml Output Urine Total 400 ml Medications Current Medications Medications Dose Ordered Sig/Oscar Route Start Time Stop Time Status Last Admin Dose Admin Atorvastatin Calcium 40 mg HS PO 01/14/25 22:00 01/14/25 22:49 40 MG Albuterol 2.5 mg Q6HPRN PRN NEB 01/14/25 01:15 01/14/25 23:02 2.5 MG Ipratropium [place] 0.5 mg Q6HPRN PRN NEB 01/14/25 01:15 01/14/25 23:02 0.5 MG Ceftriaxone Sodium 50 ml @ 100 mls/hr DAILY@09 IV 01/14/25 09:00 01/15/25 09:17 100 MLS/HR Azithromycin 250 ml @ 125 mls/hr DAILY@0000 IV 01/15/25 00:00 01/15/25 00:00 125 MLS/HR Diagnostic Test (Pha) 1 strip ACHS 01/14/25 07:00 01/15/25 11:30 1 STRIP Insulin Human Regular ACHS SC 01/14/25 07:00 Dextrose 50 ml UD PRN IV 01/14/25 01:15 Ondansetron HCl 4 mg Q4HP PRN IV 01/14/25 01:15 Acetaminophen 650 mg Q6HP PRN PO 01/14/25 01:15 Furosemide 40 mg DAILY PO 01/14/25 10:00 01/15/25 09:17 40 MG Nitroglycerin 0.4 mg Q5MINP PRN SL 01/14/25 15:45 Morphine Sulfate 2 mg Q30M PRN IV 01/14/25 15:45 Laboratory Results Laboratory Tests 01/15/25 06:44 Chemistry Test 2/21/25 06:44 Calcium Level 9.4 mg/dL (8.7-10.4) Urinalysis Test 01/14/25 03:19 Urine Color Light-yellow (Yellow) Urine Clarity Clear (Clear) Urine pH 5.0 (5.0-9.0) Urine Specific [place] 1.016 (1.001-1.035) Urine Protein Negative (Negative) Urine Ketones Negative (Negative) Urine Blood Negative /uL (Negative) Urine Nitrite Negative (Negative) Urine Bilirubin Negative (Negative) Urine Urobilinogen Normal mg/dL (Negative) Urine Leukocyte Esterase Negative /uL (Negative) Urine RBC 1 /hpf (0 - 3) Urine Microscopic WBC < 1 /HPF (0-3) Urine Squamous Epithelial Cells None seen /hpf (<5) Urine Bacteria None seen /hpf (None Seen) Urine Glucose Normal mg/dL (Normal) Assessment/Plan Assessment/Plan Community-acquired pneumonia Congestive heart failure Diabetes mellitus COPD NSTEMI, rule out type 1 Critical aortic stenosis Dyslipidemia Type 2 diabetes mellitus Tobacco use pending transfer to [facility] to [facility] Plan discussed with: Patient Date of Service: Jan 15, 2025 Billing Provider: CAROLYN DELANEY DO Common Visit Codes: [id number] INP/OBS CARE(HIGH) CAROLYN DELANEY DO Jan 15, 2025 13:37
[2025-01-15] MEDS: ACETAMINOPHEN 325 MG TAB PO PRN (21:40)
[2025-01-16] VITALS (13 sets, daily range): BP systolic 93–114; BP diastolic 65–93; PULSE 70–98; RESP 16–20; TEMP 97.5–98.3; O2SAT 93–99
[2025-01-17] VITALS (9 sets, daily range): BP systolic 91–105; BP diastolic 57–68; PULSE 78–94; RESP 16–19; TEMP 97.6–98; O2SAT 94–98
--- NOTE | 2025-01-17 07:25 | DVHPN2 ---
Progress Note Date Seen: Jan 16, 2025 Medical Necessity Reason Pt with a Central, PICC or Fol: No Subjective Other Systems: pt refused to go to [facility] and it was cancelled Objective vital signs Vital Sign Date Time Temp Pulse Resp B/P (MAP) Pulse Ox O2 Delivery O2 Flow Rate FiO2 01/17/25 05:00 98.0 87 18 98/65 (76) 95 98.0 01/17/25 01:46 0.0 21 01/16/25 21:40 Room Air* Total Intake and Output 01/16/25 01/16/25 01/17/25 15:00 23:00 07:00 Intake Total 1150 ml 950 ml Balance 1150 ml 950 ml medications Current Medications Medications Dose Ordered Sig/Oscar Route Start Time Stop Time Status Last Admin Dose Admin Atorvastatin Calcium 40 mg HS PO 01/14/25 22:00 01/16/25 21:30 40 MG Albuterol 2.5 mg Q6HPRN PRN NEB 01/14/25 01:15 01/16/25 06:24 2.5 MG Ipratropium [place] 0.5 mg Q6HPRN PRN NEB 01/14/25 01:15 01/16/25 06:24 0.5 MG Ceftriaxone Sodium 50 ml @ 100 mls/hr DAILY@09 IV 01/14/25 09:00 01/16/25 09:37 100 MLS/HR Azithromycin 250 ml @ 125 mls/hr DAILY@0000 IV 01/15/25 00:00 01/16/25 23:50 125 MLS/HR Diagnostic Test (Pha) 1 strip ACHS 01/14/25 07:00 01/16/25 11:30 1 STRIP Insulin Human Regular ACHS SC 01/14/25 07:00 Dextrose 50 ml UD PRN IV 01/14/25 01:15 Ondansetron HCl 4 mg Q4HP PRN IV 01/14/25 01:15 Acetaminophen 650 mg Q6HP PRN PO 01/14/25 01:15 01/15/25 21:40 650 MG Furosemide 40 mg DAILY PO 01/14/25 10:00 01/16/25 09:37 40 MG Nitroglycerin 0.4 mg Q5MINP PRN SL 01/14/25 15:45 Morphine Sulfate 2 mg Q30M PRN IV 01/14/25 15:45 Examination: GENERAL:Abnormal, LUNGS:Abnormal, CVS:Abnormal, ABDOMEN:Abnormal laboratory and microbiology Laboratory Tests 01/15/25 06:44 Test 01/15/25 06:44 Range/Units Serum Glucose 97 # 74-106 mg/dL Problem List/Assessment/Plan Problem List/Assessment/Plan critical -- moderate cad modesta spoke to [facility] and [facility], pt has been accepted i explained to the patient that he is delaying his own care by refusing transfer and that he is at risk for major cv event continued delay of care by patient can result morbidity/ . he agrees to transfer whenever bed available and he has already refused a bed at [facility] RN has no update on patients transfer situation mid day and hasnt spoken to any social workers regarding any update Plan discussed with: Patient Date of Service: Jan 17, 2025 Billing Provider: IJEOMA SCHNEIDER MD Common Visit Codes: NOT BILLABLE IJEOMA SCHNEIDER MD Jan 17, 2025 07:25
--- NOTE | 2025-01-17 20:57 | DVHDS2 ---
Discharge Summary Date of Admission Jan 14, 2025 at 01:15 Date of Discharge: Jan 15, 2025 Labs/Diagnostic Data: Laboratory Results Test 01/17/25 11:51 01/15/25 06:44 01/14/25 12:54 01/14/25 10:23 POC Glucose 87 mg/dl (70-106) White Blood Count 17.8 10^3/uL (4.4-10.8) Red Blood Count 4.01 10^6/uL (4.5-5.90) Hemoglobin 12.3 g/dL (13.5-17.5) Hematocrit 37.2 % (41.0-53.0) Mean Corpuscular Volume 92.6 fL (80.0-100.0) Mean Corpuscular Hemoglobin 30.8 pg (28.0-32.0) Mean Corpuscular Hemoglobin Concent 33.2 g/dL (32.0-36.0) Red Cell Distribution Width 14.7 % (11.8-14.3) Platelet Count 188 10^3/uL (140-450) Mean Platelet Volume 8.5 fL (6.9-10.8) Neutrophils (%) (Auto) 79.8 % (37.0-80.0) Lymphocytes (%) (Auto) 11.8 % (10.0-50.0) Monocytes (%) (Auto) 7.8 % (0.0-12.0) Eosinophils (%) (Auto) 0.3 % (0.0-7.0) Basophils (%) (Auto) 0.3 % (0.0-2.0) Neutrophils # (Auto) 14.2 10 ^3/uL (1.6-8.6) Lymphocytes # (Auto) 2.1 10 ^3/uL (0.4-5.4) Monocytes # (Auto) 1.4 10 ^3/uL (0-1.3) Eosinophils # (Auto) 0.1 10 ^3/uL (0-0.8) Basophils # (Auto) 0.1 10 ^3/uL (0-0.2) Nucleated Red Blood Cells 0.0 % Sodium Level 140 mmol/L (136-145) Potassium Level 4.5 mmol/L (3.5-5.1) Chloride Level 108 mmol/L (98-107) Carbon Dioxide Level 28 mmol/L (20-31) Anion Gap 4 (5-15) Blood Urea Nitrogen 31 mg/dL (9-23) Creatinine 0.86 mg/dL (0.700-1.30) Glomerular Filtration Rate Calc 96 mL/min (>90) BUN/Creatinine Ratio 36.0 (10.0-20.0) Serum Glucose 97 mg/dL (74-106) Calcium Level 9.4 mg/dL (8.7-10.4) Troponin I High Sensitivity 2155 ng/L (</=54) Free Thyroxine (T4) Calculated 1.38 ng/dL (0.89-1.76) Free Triiodothyronine (T3) pg/mL 2.47 pg/mL (2.3-4.2) Test 01/14/25 09:18 01/14/25 07:02 01/14/25 03:19 01/14/25 00:00 Influenza Type A Antigen Negative (Negative) Influenza Type B Antigen Negative (Negative) Prothrombin Time 11.4 sec (9.3-11.8) Prothrombin Time INR 1.08 (0.9-1.15) Activated Partial Thromboplast Time 23.9 SEC (24.5-34.5) Hemoglobin A1c 5.8 % A1C (<5.7) Magnesium Level 1.8 mg/dL (1.6-2.6) Triglycerides Level 58 mg/dL (< 150) Cholesterol Level 207 mg/dL (< 200) LDL Cholesterol 131 mg/dL (< 100) HDL Cholesterol 66 mg/dL (40-59) Thyroid Stimulating Hormone (TSH) 0.41 uIU/mL (0.55-4.78) Urine Color Light-yellow (Yellow) Urine Clarity Clear (Clear) Urine pH 5.0 (5.0-9.0) Urine Specific [place] 1.016 (1.001-1.035) Urine Protein Negative (Negative) Urine Ketones Negative (Negative) Urine Blood Negative /uL (Negative) Urine Nitrite Negative (Negative) Urine Bilirubin Negative (Negative) Urine Urobilinogen Normal mg/dL (Negative) Urine Leukocyte Esterase Negative /uL (Negative) Urine RBC 1 /hpf (0 - 3) Urine Microscopic WBC < 1 /HPF (0-3) Urine Squamous Epithelial Cells None seen /hpf (<5) Urine Bacteria None seen /hpf (None Seen) Urine Glucose Normal mg/dL (Normal) SARS-CoV-2 Antigen (Rapid) Negative (NEGATIVE) Test 01/13/25 22:58 D-Dimer, Quantitative 0.54 mg/L FEU (0.0-0.49) Lactic Acid Level 2.0 mmol/L (0.4-2.0) B-Type Natriuretic Peptide 841.01 pg/mL (0-100) Other Laboratory Tests 01/15/25 06:44 Brief Hx & Hospital Course: 64-year-old male presents for evaluation of shortness for breath. Patient presents with a one-week history of worsening shortness for breath with mild exertion. Patient reports becoming severely winded with doing minimal tasks at home. Denies chest pain or palpitations. States having a nonproductive cough. No fever or chills. No other acute complaints reported. Community-acquired pneumonia Congestive heart failure Diabetes mellitus COPD NSTEMI, rule out type 1 Critical aortic stenosis Dyslipidemia Type 2 diabetes mellitus Tobacco use 01/15/2025 pending transfer to [facility] to [facility] i discussed with pt and advised him to be transferred where ever accepts him 01/17/2025 transferred to [facility] Condition at Discharge: Good Final Diagnosis/Problems List community acquired pneumonia Discharge Disposition: Acute Care Facility Discharge Instruct/Medications Diet: Cardiac 2g Na,low cholest Activity: No Restrictions, As Tolerated Discharge Statement: "Patient was advised to return to the ER or call 911 if any headaches, dizziness, shortness of breath, chest pain, abdominal pain, bleeding, fevers, or worsening of medical condition. Patient was counseled about treatment plan, medications, possible side effects, patientverbalized understanding. All questions were answered to the best of my ability. This discharge took greater then 30 minutes in planning, reviewing documentation, counseling the patient, and discussing with other team members." ASSESSMENT ASSESSMENT Assessment community acquired pneumonia Date of Service: Jan 17, 2025 Billing Provider: CAROLYN DELANEY DO Common Visit Codes: [id number] DISCH DAY >30min CAROLYN DELANEY DO Jan 17, 2025 20:57
--- NOTE | 2025-01-17 20:58 | DVHPN2 ---
Reviewed: Care Plan, H&P, Labs, Medications, Previous Orders, Radiology Changes from previous H/P or p: No Changes General: Per HPI Objective Vitals Vital Signs Date Time Temp Pulse Resp B/P (MAP) Pulse Ox O2 Delivery O2 Flow Rate FiO2 01/17/25 13:00 97.9 84 16 98/65 (76) 95 97.9 01/17/25 10:00 Room Air* 0 21 Intake/Output Intake and Output 01/17/25 07:00 Intake Total 2100 ml Balance 2100 ml Intake Oral 1850 ml IV Total 250 ml # Voids 6 # Bowel Movements 1 Laboratory Results Laboratory Tests 01/15/25 06:44 Urinalysis Test 01/14/25 03:19 Urine Color Light-yellow (Yellow) Urine Clarity Clear (Clear) Urine pH 5.0 (5.0-9.0) Urine Specific [place] 1.016 (1.001-1.035) Urine Protein Negative (Negative) Urine Ketones Negative (Negative) Urine Blood Negative /uL (Negative) Urine Nitrite Negative (Negative) Urine Bilirubin Negative (Negative) Urine Urobilinogen Normal mg/dL (Negative) Urine Leukocyte Esterase Negative /uL (Negative) Urine RBC 1 /hpf (0 - 3) Urine Microscopic WBC < 1 /HPF (0-3) Urine Squamous Epithelial Cells None seen /hpf (<5) Urine Bacteria None seen /hpf (None Seen) Urine Glucose Normal mg/dL (Normal) Assessment/Plan Assessment/Plan Community-acquired pneumonia Congestive heart failure Diabetes mellitus COPD NSTEMI, rule out type 1 Critical aortic stenosis Dyslipidemia Type 2 diabetes mellitus Tobacco use pending transfer to [facility] to [facility] i discussed with pt and advised him to be transferred where ever accepts him Plan discussed with: Patient My Orders Orders - CAROLYN DELANEY DO Procedure Category Date Status Time Imaging Transfer ORDERS 01/17/25 Transmitted Request 12:01 Imaging Transfer ORDERS 01/17/25 Transmitted Request 13:08 Date of Service: Jan 16, 2025 Billing Provider: CAROLYN DELANEY DO Common Visit Codes: [id number] INP/OBS CARE(HIGH) CAROLYN DELANEY DO Jan 17, 2025 20:58
== END 2025-01-17 15:22 | disposition short-term general hospital (02) | DRG 280 ==
LOC: ER 22:31 → EDBD 22:31 → OVERFLOW 01-14 01:15 → TELE-EAST 01-14 17:27
PROVIDERS: ADMIT Internal Medicine; ATTEND Internal Medicine
PROC: B211YZZ Fluoroscopy of Multiple Coronary Arteries using Other Contrast (ICD-10-PCS; principal; 2025-01-14)
PROC: 4A023N7 Measurement of Cardiac Sampling and Pressure, Left Heart, Percutaneous Approach (ICD-10-PCS; 2025-01-14)
DX: I21.4 Non-ST elevation (NSTEMI) myocardial infarction (principal); I50.21 Acute systolic (congestive) heart failure; J15.69 Pneumonia due to other Gram-negative bacteria; J96.20 Acute and chronic respiratory failure, unspecified whether with hypoxia or hypercapnia; J15.9 Unspecified bacterial pneumonia; J44.0 Chronic obstructive pulmonary disease with (acute) lower respiratory infection; Z20.822 Contact with and (suspected) exposure to COVID-19; I35.0 Nonrheumatic aortic (valve) stenosis; E78.5 Hyperlipidemia, unspecified; I25.10 Atherosclerotic heart disease of native coronary artery without angina pectoris; F17.210 Nicotine dependence, cigarettes, uncomplicated; G89.29 Other chronic pain; M54.9 Dorsalgia, unspecified; I11.0 Hypertensive heart disease with heart failure; E11.65 Type 2 diabetes mellitus with hyperglycemia
CPT/HCPCS: 36415; 71045; 80048; 80061; 81001; 82962; 83036; 83605; 83735; 83880; 84439; 84443; 84481; 84484; 85025; 85379; 85610; 85730; 87426; 87804; 93005; 93306; 93458; 94640; 96374; 99152; 99291; G0378; J1815; J2250; Q9967